=== PATIENT | male | born 1965 | race African-American/Black ===

== ENCOUNTER 2022-12-04 09:13 | Emergency (ER) | payer SELFPAY ==
[~2022-12-04] VITALS: Ht 175.3 cm; Wt 64.0 kg
[2022-12-04 09:30] VITALS: BP 134/82; PULSE 60; RESP 16; TEMP 98.6; O2SAT 100
[2022-12-04 11:56] LABS: BASOPHILS % 0.6 % (0.0-2.0); EOSINOPHILS % 0.1 % (0.0-5.0); HEMATOCRIT. 37.2 % (42.0-52.0); HEMOGLOBIN. 12.7 g/dL (14.0-18.0); LYMPHOCYTES % 16.7 % (20.0-50.0); MEAN CORPUSCULAR HEMOGLOBIN 33.2 pg (28.0-32.0); MEAN CORPUSCULAR VOLUME 97.6 fL (80.0-94.0); MEAN PLATELET VOLUME 8.8 fl (7.4-10.4); MONOCYTES % 5.2 % (2.0-8.0); NEUTROPHILS % 77.4 % (40.0-76.0); PLATELET 200 x1000/uL (130-400); RED BLOOD CELL COUNT 3.81 mill/uL (4.7-6.1); RED CELL DISTRIBUTION WIDTH 13.9 % (11.6-14.6); WHITE BLOOD COUNT 9.1 x1000/uL (4.5-11.0)
[2022-12-04 12:03] LABS: CHLORIDE 95 mEq/L (98-107); INDEX HEMOLYSI 3 (1-3); INDEX ICTERIC 1 (1-4); INDEX LIPEMIC 1 (1-3); POTASSIUM 4.2 mEq/L (3.5-5.1); SODIUM 129 mEq/L (136-145)
[2022-12-04 12:13] LABS: ALANINE AMINOTRANSFERASE 70 IU/L (13-61); ALBUMIN 3.8 g/dL (3.4-5.0); ASPARTATE AMINOTRANSFERASE 68 IU/L (15-37); BILIRUBIN TOTAL 0.5 mg/dL (0.1-1.0); CALCIUM 9.4 mg/dL (8.5-10.1); CARBON DIOXIDE 28 mEq/L (21-32); CREATININE 0.6 mg/dL (0.6-1.3); GLUCOSE 129 mg/dL (70-105); PROTEIN TOTAL 7.8 g/dL (6.0-8.3); TROPONIN I HIGH SENSITIVITY 9 ng/L (<78); UREA NITROGEN BLOOD 9 mg/dL (7-21)
[2022-12-04] MEDS ORDERED: FAMO20TA8 MT (12:40)
[2022-12-04] MEDS ORDERED: POLY17PO3 MT (12:40)
[2022-12-04] MEDS ORDERED: MAG-55 MT (12:40)
== END 2022-12-04 13:22 | disposition home or self-care (01) ==
LOC: ER 09:13
DX: R10.31 Right lower quadrant pain (principal); R11.2 Nausea with vomiting, unspecified; K59.00 Constipation, unspecified
CPT/HCPCS: 36415; 74176; 80053; 84484; 85025; 99284